=== PATIENT | female | born 1970 | race Caucasian/White ===

== ENCOUNTER → 2019-08-22 | Outpatient (CLI) | payer BC ==
--- NOTE | 2019-08-22 14:14 | MM ---
Reason for exam: additional evaluation requested from prior study. Last mammogram was performed 1 year and 2 months ago. History: Patient is nulliparous. Family history of premenopausal breast cancer in mother at age 44. Benign US breast needle core RT of the right breast, May 03, 2016. Benign US breast needle core addl RT of the right breast, May 03, 2016. Benign MG pre op needle loc LT of the left breast, February 10, 2015. Benign US biopsy breast VAD LT of the left breast, January 20, 2015. Benign ultrasound-guided core biopsy of the left breast, February 17, 2003. Lumpectomy of the left breast, June 01, 2000. Core biopsy of the left breast. Core biopsy of the right breast. Excisional biopsy of the left breast. Took hormonal contraceptives for 4 years. Physical Findings: Nurse Summary: 1.5cm nodule in the right breast at 9-10 o'clock (nurse mj). MG 3D Diag Mammo W/Cad ROSAURA Bilateral CC and MLO view(s) were taken. Spot compression CC, spot compression MLO, and ML view(s) were taken of the right breast. Prior study comparison: July 05, 2018, bilateral MG 3d diag mammo w/cad ROSAURA. May 25, 2017, bilateral MG 3d diag mammo w/cad ROSAURA. The breast tissue is heterogeneously dense. This may lower the sensitivity of mammography. No suspicious abnormality. The previously seen abnormality resolves on additional views and appears as fibroglandular tissue compatible with summation on the right breast. Multiple right biopsy markers. Left post surgical change. No significant new findings when compared with previous films. These results were verbally communicated with the patient and result sheet given to the patient on 08/22/19. ASSESSMENT: Benign, BI-RAD 2 RECOMMENDATION: Follow-up diagnostic mammogram of both breasts in 1 year.
== END | disposition home or self-care (01) ==
LOC: RADMAMWWP 12:56
PROVIDERS: ATTEND Obstetrics & Gynecology
DX: R92.8 Other abnormal and inconclusive findings on diagnostic imaging of breast (principal)
CPT/HCPCS: 77062; 77066

== ENCOUNTER → 2020-09-10 | Outpatient (CLI) | payer BC ==
--- NOTE | 2020-09-11 11:30 | MM ---
Reason for exam: additional evaluation requested from prior study. Last mammogram was performed 1 year and 1 month ago. History: Patient is nulliparous. Family history of premenopausal breast cancer in mother at age 44. Benign US breast needle core RT of the right breast, May 03, 2016. Benign US breast needle core addl RT of the right breast, May 03, 2016. Benign MG pre op needle loc LT of the left breast, February 10, 2015. Benign US biopsy breast VAD LT of the left breast, January 20, 2015. Benign ultrasound-guided core biopsy of the left breast, February 17, 2003. Lumpectomy of the left breast, June 01, 2000. Core biopsy of the left breast. Core biopsy of the right breast. Excisional biopsy of the left breast. Took hormonal contraceptives for 4 years. Physical Findings: Nurse Summary: 1.5cm nodule in the right breast at 8 o'clock (nurse db). MG 3D Diag Mammo W/Cad ROSAURA Bilateral CC and MLO view(s) were taken. LM, CC with magnification, and LM with magnification view(s) were taken of the right breast. Prior study comparison: August 22, 2019, bilateral MG 3d diag mammo w/cad ROSAURA. July 05, 2018, bilateral MG 3d diag mammo w/cad ROSAURA. Finding: There are suspicious coarse heterogeneous, grouped/clustered calcifications in the 6 o'clock lower quadrant, middle position of the right breast 6cm from the nipple. Previous mammotome biopsy in the right breast. New finding since August 22, 2019 and July 05, 2018. These results were verbally communicated with the patient and result sheet given to the patient on 09/10/20. ASSESSMENT: Suspicious, BI-RAD 4 RECOMMENDATION: Stereotactic core biopsy of the right breast. (right breast calcifications) Called Dr. Eaton's office with mammographic findings and has scheduled an appointment for the patient for 10/21/20 at 4:[address] Masterson. Biopsy scheduled for 10/05/20 at 10:00. PRELIMINARY REPORT CALLED AND FAXED TO DR. MASTERSON ON 09/11/20.
--- NOTE | 2020-09-11 11:31 | USB ---
Reason for exam: additional evaluation requested from prior study. History: Patient is nulliparous. Family history of premenopausal breast cancer in mother at age 44. Benign US breast needle core RT of the right breast, May 03, 2016. Benign US breast needle core addl RT of the right breast, May 03, 2016. Benign MG pre op needle loc LT of the left breast, February 10, 2015. Benign US biopsy breast VAD LT of the left breast, January 20, 2015. Benign ultrasound-guided core biopsy of the left breast, February 17, 2003. Lumpectomy of the left breast, June 01, 2000. Core biopsy of the left breast. Core biopsy of the right breast. Excisional biopsy of the left breast. Took hormonal contraceptives for 4 years. US Breast Limited RT Right limited breast ultrasound including focal area of concern, retroareolar and axilla demonstrates no cystic or solid lesion seen. These results were verbally communicated with the patient and result sheet given to the patient on 09/10/20. ASSESSMENT: Negative, BI-RAD 1 RECOMMENDATION: Stereotactic core biopsy of the right breast. (right breast calcifications) Called Dr. Eaton's office with mammographic findings and has scheduled an appointment for the patient for 10/21/20 at 4:[address] Masterson. Biopsy scheduled for 10/05/20 at 10:00. PRELIMINARY REPORT CALLED AND FAXED TO DR. MASTERSON ON 09/11/20.
== END | disposition home or self-care (01) ==
LOC: RADMAMWWP 12:46
PROVIDERS: ATTEND Obstetrics & Gynecology
DX: N63.13 Unspecified lump in the right breast, lower outer quadrant (principal); R92.8 Other abnormal and inconclusive findings on diagnostic imaging of breast
CPT/HCPCS: 77062; 77066

== ENCOUNTER → 2020-10-05 | Day surgery (SDC) | payer BC ==
[2020-10-05 09:15] VITALS: BP 145/88; PULSE 101; RESP 18; TEMP 98.1
--- NOTE | 2020-10-05 17:48 | MM ---
EXAMINATION TYPE: MG stereo VAD BX RT DATE OF EXAM: 10/05/2020 COMPARISON: 09/10/2020 CLINICAL HISTORY: 50-year-old female referred for stereotactic core needle biopsy of right breast microcalcifications TECHNIQUE: Stereotactic guided core biopsy of the right breast. FINDINGS: The procedure of stereotactic guided core biopsy was explained to the patient. Benefits, alternatives, and risks were discussed. An informed consent was then obtained. The 6-7 o'clock, middle depth, right breast microcalcifications are identified and targeted for biopsy. The shortness pathway for biopsy was chosen. Shortness pathway was a CC from below approach. I performed the localization followed by the remainder of the procedure. A vacuum assisted biopsy gun was used to obtain 6 core samples. The patient tolerated the procedure well without any immediate complication. The patient was kept in the radiology department for short stay after the procedure and then discharged home in stable condition. Targeted calcifications are identified in specimen mammogram. Post biopsy mammogram shows some minimal residual microcalcifications and 1 cm of inferior migration IMPRESSION: SUCCESSFUL, UNCOMPLICATED STEREOTACTIC GUIDED CORE BIOPSY OF THE 6-7 O'CLOCK RIGHT BREAST MICROCALCIFICATIONS. NOTE 1 CM OF INFERIOR CLIP MIGRATION; FULL PATHOLOGY RESULTS TO FOLLOW. Pathology Results: Benign RIGHT BREAST, CORE BIOPSY: Benign breast tissue with fibrotic fibroadenomatoid stromal hyperplasia, microcalcification and sclerosing adenosis (see note). Focal mild usual ductal hyperplasia present. Recommendation Follow up mammogram of the right breast in 6 months. MTDD
== END ==
LOC: RADMAMWWP 08:40
PROVIDERS: ATTEND Surgery
DX: D24.1 Benign neoplasm of right breast (principal); N62 Hypertrophy of breast; R92.0 Mammographic microcalcification found on diagnostic imaging of breast; R92.8 Other abnormal and inconclusive findings on diagnostic imaging of breast
CPT/HCPCS: 88305; 88342; 88341; 19081; A4648; J2001

== ENCOUNTER → 2021-04-15 | Outpatient (CLI) | payer BC ==
--- NOTE | 2021-04-16 10:38 | MM ---
Reason for exam: additional evaluation requested from prior study. Last mammogram was performed 7 months ago. History: Patient is nulliparous. Family history of premenopausal breast cancer in mother at age 44. Benign MG stereo VAD BX RT of the right breast, October 05, 2020. Benign US breast needle core RT of the right breast, May 03, 2016. Benign US breast needle core addl RT of the right breast, May 03, 2016. Benign MG pre op needle loc LT of the left breast, February 10, 2015. Benign US biopsy breast VAD LT of the left breast, January 20, 2015. Benign ultrasound-guided core biopsy of the left breast, February 17, 2003. Lumpectomy of the left breast, June 01, 2000. Core biopsy of the left breast. Core biopsy of the right breast. Excisional biopsy of the left breast. Took hormonal contraceptives for 4 years. Physical Findings: Nurse did not find any significant physical abnormalities on exam. MG 3D Diag Mammo W/Cad RT CC and MLO view(s) were taken of the right breast. Prior study comparison: September 10, 2020, bilateral MG 3d diag mammo w/cad ROSAURA. August 22, 2019, bilateral MG 3d diag mammo w/cad ROSAURA. July 05, 2018, bilateral MG 3d diag mammo w/cad ROSAURA. The breast tissue is heterogeneously dense. This may lower the sensitivity of mammography. Previous mammotome biopsy in the right breast x 3. No significant new findings when compared with previous films. These results were verbally communicated with the patient and result sheet given to the patient on 04/15/21. ASSESSMENT: Benign, BI-RAD 2 RECOMMENDATION: Routine screening mammogram of both breasts in 6 months. Back on schedule.
== END | disposition home or self-care (01) ==
LOC: RADMAMWWP 14:38
PROVIDERS: ATTEND Surgery
DX: R92.2 Inconclusive mammogram (principal); Z80.3 Family history of malignant neoplasm of breast
CPT/HCPCS: 77061; 77065

== ENCOUNTER → 2021-09-16 | Outpatient (CLI) | payer BC ==
--- NOTE | 2021-09-20 08:54 | MM ---
Reason for exam: screening (asymptomatic). Last mammogram was performed 5 months ago. History: Patient is postmenopausal and is nulliparous. Family history of premenopausal breast cancer in mother at age 44. Benign MG stereo VAD BX RT of the right breast, October 05, 2020. Benign US breast needle core RT of the right breast, May 03, 2016. Benign US breast needle core addl RT of the right breast, May 03, 2016. Benign MG pre op needle loc LT of the left breast, February 10, 2015. Benign US biopsy breast VAD LT of the left breast, January 20, 2015. Benign ultrasound-guided core biopsy of the left breast, February 17, 2003. Lumpectomy of the left breast, June 01, 2000. Core biopsy of the left breast. Core biopsy of the right breast. Excisional biopsy of the left breast. Took hormonal contraceptives for 4 years. Physical Findings: A clinical breast exam by your physician is recommended on an annual basis and results should be correlated with mammographic findings. MG 3D Screening Mammo W/Cad Bilateral CC and MLO view(s) were taken. Prior study comparison: April 15, 2021, right breast MG 3d diag mammo w/cad RT. September 10, 2020, bilateral MG 3d diag mammo w/cad ROSAURA. The breast tissue is heterogeneously dense. This may lower the sensitivity of mammography. Finding: There are intermediate concern, suspicious, increased, grouped/clustered calcifications in the lower inner quadrant, posterior position 9cm from the nipple. New finding since April 15, 2021 and September 10, 2020. ASSESSMENT: Incomplete: need additional imaging evaluation, BI-RAD 0 RECOMMENDATION: Special view mammogram of the right breast. [facility] will attempt to contact patient to return for supplemental views.
== END | disposition home or self-care (01) ==
LOC: RADMAMWWP 12:24
PROVIDERS: ATTEND Obstetrics & Gynecology
DX: Z12.31 Encounter for screening mammogram for malignant neoplasm of breast (principal); Z78.0 Asymptomatic menopausal state; Z80.3 Family history of malignant neoplasm of breast
CPT/HCPCS: 77063; 77067

== ENCOUNTER → 2021-09-23 | Outpatient (CLI) | payer BC ==
--- NOTE | 2021-09-29 09:21 | MM ---
Reason for exam: additional evaluation requested from abnormal screening. Last mammogram was performed less than 1 month ago. History: Patient is postmenopausal and is nulliparous. Family history of premenopausal breast cancer in mother at age 44. Benign MG stereo VAD BX RT of the right breast, October 05, 2020. Benign US breast needle core RT of the right breast, May 03, 2016. Benign US breast needle core addl RT of the right breast, May 03, 2016. Benign MG pre op needle loc LT of the left breast, February 10, 2015. Benign US biopsy breast VAD LT of the left breast, January 20, 2015. Benign ultrasound-guided core biopsy of the left breast, February 17, 2003. Lumpectomy of the left breast, June 01, 2000. Core biopsy of the left breast. Core biopsy of the right breast. Excisional biopsy of the left breast. Took hormonal contraceptives for 4 years. Physical Findings: Nurse did not find any significant physical abnormalities on exam. MG 3D Work Up W/Cad RT CC with magnification, LM with magnification, and LM view(s) were taken of the right breast. Prior study comparison: September 16, 2021, bilateral MG 3d screening mammo w/cad. April 15, 2021, right breast MG 3d diag mammo w/cad RT. September 10, 2020, bilateral MG 3d diag mammo w/cad ROSAURA. August 22, 2019, bilateral MG 3d diag mammo w/cad ROSAURA. July 05, 2018, bilateral MG 3d diag mammo w/cad ROSAURA. 4 o'clock posterior right breast grouped microcalcifications are heterogeneous, biopsy recommended. These results were verbally communicated with the patient and result sheet given to the patient on 09/23/21. ASSESSMENT: Suspicious, BI-RAD 4 RECOMMENDATION: Stereotactic core biopsy of the right breast. Called Dr. Eaton's office with mammographic findings and has scheduled an appointment for the patient for 11/18/21 at 10:[address] Masterson. Biopsy scheduled for 10/25/21 at 10:30. PRELIMINARY REPORT CALLED AND FAXED TO DR. MASTERSON ON 09/29/21.
== END | disposition home or self-care (01) ==
LOC: RADMAMWWP 13:25
PROVIDERS: ATTEND Obstetrics & Gynecology
DX: R92.0 Mammographic microcalcification found on diagnostic imaging of breast (principal); Z80.3 Family history of malignant neoplasm of breast; Z78.0 Asymptomatic menopausal state
CPT/HCPCS: 77061; 77065

== ENCOUNTER → 2021-10-25 | Day surgery (SDC) | payer BC ==
[2021-10-25 09:43] VITALS: RESP 16; TEMP 98.1
[2021-10-25 10:59] VITALS: BP 153/88; PULSE 72
--- NOTE | 2021-10-25 19:01 | MM ---
EXAMINATION TYPE: MG stereo VAD BX RT DATE OF EXAM: 10/25/2021 COMPARISON: 09/23/2021, 09/16/2021 CLINICAL HISTORY: 51-year-old female referred for stereotactic core needle biopsy of 4:00 right breast microcalcifications. TECHNIQUE: Stereotactic guided core biopsy of the right breast. FINDINGS: The procedure of stereotactic guided core biopsy was explained to the patient. Benefits, alternatives, and risks were discussed. An informed consent was then obtained. The [facility] for biopsy was chosen. [facility] was a medial approach. I performed the localization followed by the remainder of the procedure. A vacuum assisted biopsy gun was used to obtain 4 core samples. The patient tolerated the procedure well without any immediate complication. The patient was kept in the radiology department for short stay after the procedure and then discharged home in stable condition. Targeted calcifications are identified in specimen mammogram. Post biopsy mammogram shows the clip to appear in satisfactory position relative to the targeted area of concern on the preprocedure images. IMPRESSION: SUCCESSFUL, UNCOMPLICATED STEREOTACTIC GUIDED CORE BIOPSY OF 4:00 RIGHT BREAST MICROCALCIFICATIONS. FULL PATHOLOGY RESULTS TO FOLLOW. Pathology Results: Benign RIGHT BREAST, 4:00 POSITION, CORE BIOPSY: Sclerotic and fibrotic fibroadenomatoid stromal hyperplasia with microcalcification, fibrocystic change with columnar cell change, focal benign adenosis and focal usual ductal hyperplasia. Negative for in situ or invasive malignancy (see note). Recommendation Follow up mammogram of the right breast in 6 months. HECTOR
== END | disposition home or self-care (01) ==
LOC: RADMAMWWP 09:16
PROVIDERS: ATTEND Surgery
DX: D24.1 Benign neoplasm of right breast (principal); N62 Hypertrophy of breast; R92.1 Mammographic calcification found on diagnostic imaging of breast
CPT/HCPCS: 88305; 19081; A4648; J2001

== ENCOUNTER → 2022-05-30 | Outpatient (CLI) | payer BC ==
--- NOTE | 2022-05-30 13:21 | MM ---
Reason for Exam: Hx of benign breast biopsy. Last screening mammogram was performed 8 month(s) ago. Patient History: Menarche at age 10. Patient has no children. Hysterectomy at age 43. Postmenopausal. Patient used Hormonal Contraceptives for 4 years. Core Biopsy on the Right side. Core Biopsy on the Left side. Excisional Biopsy on the Left side. 10/25/2021, Benign Core Biopsy on the right side. 10/05/2020, Benign Core Biopsy on the right side. 05/03/2016, Benign Core Biopsy on the right side. 05/03/2016, Benign Core Biopsy on the right side. 02/10/2015, Benign Core Biopsy on the left side. 01/20/2015, Benign Core Biopsy on the left side. 02/17/2003, Benign Ultrasound-Guided Core Biopsy on the left side. 06/01/2000, Lumpectomy on the Left side. Mother had breast cancer, age 44. Risk Values: [place] 5 year model risk: 3.4%. NCI Lifetime model risk: 22.7%. Prior Study Comparison: 04/15/2021 Right Diagnostic Mammogram, [facility]. 09/16/2021 Bilateral Screening Mammogram, [facility]. 09/23/2021 Right Diagnostic Mammogram, [facility]. Tissue Density: Right: The breast tissue is heterogeneously dense. This may lower the sensitivity of mammography. Findings: Analyzed By CAD. Postbiopsy changes are seen within the right breast with multiple surgical clips present. No suspicious masses distortions or calcifications. Benign-appearing calcifications are present. Overall Assessment: Benign, BI-RAD 2 Management: Screening Mammogram of both breasts in 1 year. A clinical breast exam by your physician is recommended on an annual basis and results should be correlated with mammographic findings. This exam should not preclude additional follow-up of suspicious palpable abnormalities. Results were given to the patient verbally at the time of exam. Electronically signed and approved by: Zeke Wick DO
== END | disposition home or self-care (01) ==
LOC: RADMAMWWP 12:54
PROVIDERS: ATTEND Surgery
DX: R92.8 Other abnormal and inconclusive findings on diagnostic imaging of breast (principal); Z78.0 Asymptomatic menopausal state; Z80.3 Family history of malignant neoplasm of breast
CPT/HCPCS: 77061; 77065

== ENCOUNTER 2022-10-27 11:46 | Emergency (ER) | payer BC ==
[2022-10-27 12:00] VITALS: PULSE 100; RESP 20
[2022-10-27] MEDS ORDERED: ACETAMINOPHEN TAB 325 MG TAB PO STA (12:28)
[2022-10-27 12:41] VITALS: BP 164/84
[2022-10-27 12:42] VITALS: TEMP 98.6
--- NOTE | 2022-10-27 13:15 | XR ---
EXAMINATION TYPE: XR chest 2V DATE OF EXAM: 10/27/2022 COMPARISON: None HISTORY: 52 year-old female shortness of breath TECHNIQUE: PA and lateral views FINDINGS: The cardiomediastinal silhouette, aorta, and pulmonary vasculature are within normal limits. Lungs an d pleural spaces are clear. IMPRESSION: No acute cardiopulmonary process.
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
== END 2022-10-27 13:54 | disposition home or self-care (01) ==
LOC: EC 11:46
DX: U07.1 COVID-19 (principal); E11.9 Type 2 diabetes mellitus without complications; E78.5 Hyperlipidemia, unspecified; E07.9 Disorder of thyroid, unspecified; Z79.890 Hormone replacement therapy; Z79.899 Other long term (current) drug therapy; Z79.84 Long term (current) use of oral hypoglycemic drugs
CPT/HCPCS: 71046; 87635; 93005; 99284